=== PATIENT | male | born 1955 | race Caucasian/White ===

== ENCOUNTER 2023-03-06 13:13 | Outpatient (CLI) | payer MEDICARE, OTHER ==
[2023-03-06 15:15] LABS: Hematocrit 44.8 % (38.8-50.0); Hemoglobin 15.3 g/dL (13.5-17.5); Mean Corpuscular HGB CONC 34.2 g/dL (32.0-36.0); Mean Corpuscular Hemoglobin 30.2 pg (27.0-33.0); Mean Corpuscular Volume 88.4 fl (81.2-95.1); Mean Platelet Volume 10.6 fl (7.4-10.4); Platelet Count 305 10x3/uL (150-450); RBC Distribution Width 12.5 % (11.5-14.5); Red Blood Cell (RBC) Count 5.07 10x6/uL (4.32-5.72); White Blood Cell (WBC) Count 9.4 10x3/uL (3.5-10.5)
[2023-03-06 15:25] LABS: PTT 28.9 sec (22.0-33.0); Prothrombin Time 10.9 sec (9.5-12.1)
[2023-03-06 15:26] LABS: Anion Gap 13 mmol/L (10-20); BUN (Urea Nitrogen) 17 mg/dL (8.4-25.7); Calc. Creatinine Clearance 0 mL/min (70-130); Calcium 9.4 mg/dL (7.8-10.44); Carbon Dioxide 22 mmol/L (23-31); Chloride 105 mmol/L (98-107); Estimated GFR 68; Glucose 139 mg/dL (80-115); Potassium 4.4 mmol/L (3.5-5.1); Sodium 136 mmol/L (136-145)
== END 2023-03-06 13:14 | disposition home or self-care (01) ==
LOC: CSHLAB 13:13
PROVIDERS: ATTEND Orthopaedic Surgery
DX: Z01.818 Encounter for other preprocedural examination (principal); T84.498S Other mechanical complication of other internal orthopedic devices, implants and grafts, sequela
CPT/HCPCS: 80048; 85027; 85610; 85730; 93005; 93010

== ENCOUNTER 2023-03-09 10:54 | Inpatient (IN) | payer MEDICARE, OTHER ==
[2023-03-06 14:08] VITALS: BMI 31.0
[2023-03-09] MEDS ORDERED: Famotidine/PF 20 mg/2ml Vial ONE (11:47)
[2023-03-09] MEDS ORDERED: Lidocaine 1% PF 5 ML VIAL ONE (12:08)
[2023-03-09] MEDS ORDERED: Rocuronium Bromide 10 MG/ML (10ML VIAL) ONE (12:08)
[2023-03-09] MEDS ORDERED: PROPOFOL 20 ML ONE (12:08)
[2023-03-09] MEDS ORDERED: Ondansetron PF 4 MG/2 ML Vial ONE (12:08)
[2023-03-09] MEDS ORDERED: Dexamethasone 4 mg/ml Vial ONE (12:08)
[2023-03-09] MEDS ORDERED: Bupivacaine 0.25% HCL 30 ML VIAL ONE (12:55)
[2023-03-09] MEDS ORDERED: EPINEPHrine 1 MG/ML VIAL ONE (12:55)
[2023-03-09] MEDS ORDERED: Phenylephrine 40 MG/NS 250 ML 250 ML ONE (13:00)
[2023-03-09] MEDS ORDERED: Sevoflurane 250 ML INH ANEST BOTTLE ONE (13:00)
[2023-03-09] MEDS ORDERED: Propofol 1,000 MG/100 ML VIAL IV ONE (13:00)
[2023-03-09] MEDS ORDERED: Dexamethasone 20 MG/5 ML VIAL ONE (13:06)
[2023-03-09] MEDS ORDERED: Fentanyl 250 MCG/5 ML VIAL ONE (13:06)
[2023-03-09] MEDS ORDERED: Midazolam HCl 2 mg/2 ml Vial ONE (13:07)
[2023-03-09] MEDS ORDERED: CEFAZOLIN 2 GM VIAL ONE (13:09)
[2023-03-09] MEDS ORDERED: SUGAMMADEX SODIUM 200 MG/2 ML VIAL ONE (13:14)
[2023-03-09] MEDS ORDERED: HYDROcodone/Acetaminophen 10/325 mg Tablet PO PRN ×2 (15:03→15:25)
[2023-03-09] MEDS ORDERED: Acetaminophen/Codeine 30-300mg Tablet PO PRN (15:03)
[2023-03-09] MEDS ORDERED: TETANUS, DIPHTHERIA TOX,ADULT (TDVAX) 0.5 ML VIAL IM ONE (15:03)
[2023-03-09] MEDS ORDERED: Morphine 4 MG/ML VIAL SLOW IVP PRN (15:03)
[2023-03-09] MEDS ORDERED: HYDROcodone/Acetaminophen 5/325 mg Tablet PO PRN (15:06)
[2023-03-09] MEDS ORDERED: Nitroglycerin 0.4 MG TAB (25 Tab Bottle) SL PRN (15:06)
[2023-03-09] MEDS ORDERED: Communication Order-Pharmacy FS SCH (15:15)
[2023-03-09] MEDS ORDERED: fentaNYL 50 mcg/mL 1 mL Vial ONE (15:26)
[2023-03-09] MEDS: metFORMIN 500 MG TAB PO SCH (17:15)
[2023-03-09] MEDS ORDERED: [UNRECOGNIZED DRUG - OTHER] PO SCH (21:00)
[2023-03-09] MEDS ORDERED: BERBERINE PO SCH (21:00)
[2023-03-09] MEDS ORDERED: MAGNESIUM GLYCINATE MAG OXIDE PO SCH (21:00)
[2023-03-09] MEDS ORDERED: CIDER VINEGAR PO SCH (21:00)
[2023-03-09] MEDS: CEFAZOLIN 2 GM in Sodium Chloride 0.9% 100 ML IVPB SCH (21:55)
[2023-03-09] MEDS: Acetylcysteine 800 MG/4 ML VIAL PO SCH (22:00)
[2023-03-09] MEDS: Ascorbic Acid 500 mg Chewable Tablet PO SCH (22:03)
[2023-03-09] MEDS: Carvedilol 3.125 MG TAB PO SCH (22:03)
[2023-03-09] MEDS: Aspirin 81 mg Enteric Coated Tablet PO SCH (22:03)
[2023-03-10] MEDS: CEFAZOLIN 2 GM in Sodium Chloride 0.9% 100 ML IVPB SCH ×2 (05:16→12:05)
[2023-03-10] MEDS ORDERED: Amlodipine 10 MG TAB PO SCH (09:00)
[2023-03-10] MEDS ORDERED: Aspirin 81 mg Enteric Coated Tablet PO SCH (09:00)
[2023-03-10] MEDS ORDERED: Multivit, Therapeutic 1 TAB PO SCH (09:00)
[2023-03-10] MEDS ORDERED: CO Q-10 CAPSULE 50 MG PO SCH (09:00)
[2023-03-10] MEDS ORDERED: Lisinopril 20 MG TAB PO SCH (09:00)
[2023-03-10] MEDS ORDERED: Fish Oil 1,000 MG CAP PO SCH (09:00)
[2023-03-10] MEDS: Ascorbic Acid 500 mg Chewable Tablet PO SCH (12:12)
[2023-03-10] MEDS: metFORMIN 500 MG TAB PO SCH (12:12)
[2023-03-10] MEDS: Carvedilol 3.125 MG TAB PO SCH (12:12)
[2023-03-10] MEDS: Acetylcysteine 800 MG/4 ML VIAL PO SCH (12:12)
[2023-03-10] MEDS: Aspirin 81 mg Enteric Coated Tablet PO SCH (12:12)
[2023-03-10 12:58] VITALS: BP 142/68; TEMP 98.3
== END 2023-03-10 13:19 | disposition home or self-care (01) | DRG 517 ==
LOC: CSHSDC 10:54 → CSHTELE 13:53
PROVIDERS: ADMIT Orthopaedic Surgery; ATTEND Orthopaedic Surgery
PROC: 0SP004Z Removal of Internal Fixation Device from Lumbar Vertebral Joint, Open Approach (ICD-10-PCS; principal; 2023-03-09)
PROC: 0SP304Z Removal of Internal Fixation Device from Lumbosacral Joint, Open Approach (ICD-10-PCS; 2023-03-09)
PROC: 3E033XZ Introduction of Vasopressor into Peripheral Vein, Percutaneous Approach (ICD-10-PCS; 2023-03-09)
DX: T84.84XA Pain due to internal orthopedic prosthetic devices, implants and grafts, initial encounter (principal); I25.10 Atherosclerotic heart disease of native coronary artery without angina pectoris; Z79.899 Other long term (current) drug therapy; Z88.2 Allergy status to sulfonamides; Z88.1 Allergy status to other antibiotic agents; Y83.8 Other surgical procedures as the cause of abnormal reaction of the patient, or of later complication, without mention of misadventure at the time of the procedure
CPT/HCPCS: 36416; 72100; C1889; J0171; J1100; J2250; J2405; J2704; J3010; J3490; S0020; S0028